=== PATIENT | male | born 1980 | race American Indian/Alaskan Native ===

== ENCOUNTER 2020-05-09 10:41 | Observation (INO) | payer BC ==
--- NOTE | 2020-05-09 10:57 | Event Note ---
ED Screening Note ED Screening Note: severe abd pain since 0500 diffuse n/v x 1 no diarrhea no fever no dysuria or back pain no c/e/d no pmh no surg hx Dr Olivo is pcp This initial assessment/diagnostic orders/clinical plan/treatment(s) is/are subject to change based on patients health status, clinical progression and re- assessment by fellow clinical providers in the ED. Further treatment and workup at subsequent clinical providers discretion. Patient/guardian urged not to elope from the ED as their condition may be serious if not clinically assessed and managed. Initial orders include: ua/labs
[2020-05-09] MEDS ORDERED: ONDANSETRON 4 MG/2 ML INJ IV ONE (12:10)
[2020-05-09] MEDS ORDERED: SODIUM CHLORIDE 0.9% 1000 ML 1,000 ML IV ONE (12:10)
[2020-05-09] MEDS ORDERED: MORPHINE 2 MG/1 ML INJ IV ONE ×2 (12:10→13:47)
--- NOTE | 2020-05-09 12:17 | Emergency Department Report ---
ED Abdominal Pain HPI - General Chief Complaint: Abdominal Pain Stated Complaint: STOMACH PAIN Time Seen by Provider: 05/09/20 10:55 Source: patient Mode of arrival: Ambulatory Limitations: No Limitations - History of Present Illness Initial Comments: 39-year-old male, no past medical history, presents to ED with abdominal pain since 5 AM. Patient states pain has been getting increasingly worse. States pain is located in the mid to right lower quadrant. Patient reports associated vomiting x1. He denies any diarrhea, hematuria, dysuria, or fever. MD Complaint: abdominal pain -: This morning Location: RLQ Radiation: none Migration to: no migration Severity: severe Quality: cramping Consistency: constant Improves With: nothing Worsens With: nothing Associated Symptoms: nausea, vomiting. denies: diarrhea, fever, dysuria, hematuria - Related Data Allergies Allergy/AdvReac Type Severity Reaction Status Date / Time No Known Allergies Allergy Unverified 05/09/20 10:50 ED Review of Systems ROS: Stated complaint: STOMACH PAIN Other details as noted in HPI Comment: All other systems reviewed and negative Constitutional: denies: chills, fever Gastrointestinal: abdominal pain, nausea, vomiting. denies: diarrhea Genitourinary: denies: dysuria, frequency, hematuria ED Past Medical Hx - Past Medical History Previous Medical History?: No - Surgical History Past Surgical History?: No - Social History Smoking Status: Never Smoker Substance Use Type: None ED Physical Exam - General Limitations: No Limitations General appearance: alert, other (In obvious pain) - Head Head exam: Present: atraumatic, normocephalic - Eye Eye exam: Present: normal appearance, EOMI - ENT ENT exam: Present: mucous membranes moist - Neck Neck exam: Present: normal inspection - Respiratory Respiratory exam: Present: normal lung sounds bilaterally. Absent: respiratory distress - Cardiovascular Cardiovascular Exam: Present: regular rate, normal rhythm - GI/Abdominal GI/Abdominal exam: Present: soft, tenderness (Right lower quadrant). Absent: distended - Extremities Exam Extremities exam: Present: normal inspection - Neurological Exam Neurological exam: Present: alert, oriented X3 - Psychiatric Psychiatric exam: Present: normal affect, normal mood - Skin Skin exam: Present: warm, dry, intact, normal color ED Course Vital Signs 05/09/20 05/09/20 05/09/20 10:54 13:05 15:13 Temperature 98.4 F Pulse Rate 81 86 Respiratory 26 H 18 16 Rate Blood Pressure 152/88 Blood Pressure 132/76 [Left] O2 Sat by Pulse 100 100 100 Oximetry - Consultations Consultation #1: 05/09/20 14:[address] Morris. She will come and see the patient. ED Medical Decision Making - Lab Data Result diagrams: 05/09/20 12:19 05/09/20 12:19 - Radiology Data Radiology results: report reviewed, image reviewed - Medical Decision Making 39-year-old male presents to ED with right lower quadrant pain. Patient has elevated WBCs of 15. CT abdomen pelvis shows evidence of acute appendicitis. Spoke with Dr. Morris, general surgeon on-call, will take patient to the OR. Patient given a dose of Zosyn here in the ED. Patient will be admitted by hospitalist, Dr Cleveland, for further management. - Differential Diagnosis Appendicitis, kidney stone Critical care attestation.: If time is entered above; I have spent that time in minutes in the direct care of this critically ill patient, excluding procedure time. ED Disposition Clinical Impression: Acute appendicitis Disposition: OP ADMIT IP TO THIS HOSP Is pt being admited?: Yes Condition: Stable Time of Disposition: 14:41
[2020-05-09 12:44] LABS: Basophils # (Auto) 0.1 K/mm3 (0.0-0.1); Basophils % (Auto) 0.4 % (0.0-1.8); Hematocrit 46.4 % (35.5-45.6); Hemoglobin 15.6 gm/dl (11.8-15.2); Lymphocytes # (Auto) 1.6 K/mm3 (1.2-5.4); Lymphocytes % (Auto) 10.8 % (13.4-35.0); Mean Corpuscular HGB Conc 34 % (32-34); Mean Corpuscular Volume 82 fl (84-94); Monocytes # (Auto) 1.1 K/mm3 (0.0-0.8); Monocytes % (Auto) 6.9 % (0.0-7.3); Platelet Count 309 K/mm3 (140-440); Red Cell Distribution Width 13.2 % (13.2-15.2)
[2020-05-09 12:53] LABS: Bilirubin,Urine NEG (Negative); Blood,Urine SM (Negative); Color,Urine Yellow (Yellow); Mucus,Urine FEW /HPF; Protein,Urine <15 mg/dL mg/dL (Negative); Urobilinogen,Urine < 2.0 mg/dL (<2.0); WBC,Urine < 1.0 /HPF (0.0-6.0)
[2020-05-09 13:03] LABS: Alanine Aminotransferase 40 units/L (7-56); Albumin 5.1 g/dL (3.9-5); BUN/Creatinine Ratio 10; Blood Urea Nitrogen 9 mg/dL (9-20); Calcium 10.1 mg/dL (8.4-10.2); Hemolysis Index 30
--- NOTE | 2020-05-09 14:26 | Cat Scan Report ---
CT abdomen pelvis w con INDICATION / CLINICAL INFORMATION: RLQ pain. TECHNIQUE: All CT scans at this location are performed using CT dose reduction for ALARA by means of automated e xposure control. COMPARISON: None available. FINDINGS: No free fluid is seen in the abdomen. Small bilateral renal cysts are present. The liver, spleen, brian creas, adrenal glands and great vessels are normal. No enlarged mesenteric or retroperitoneal lymph n odes are seen. In the pelvis, no free fluid is seen. The appendix is dilated and fluid-filled consistent with acute appendicitis. No enlarged lymph nodes are identified. The bladder is minimally distended. No signific ant skeletal abnormality is seen. IMPRESSION: Dilated fluid-filled appendix which probably represents acute appendicitis. Signer Name: Gregory Warner MD FACR Signed: 05/09/2020 2:21 PM Workstation Name: [id number]
--- NOTE | 2020-05-09 14:26 | Consultation ---
History of Present Illness Consult date: 05/09/20 Chief complaint: Abdominal pain - History of present illness History of present illness: 39-year-old male with no past medical history who presents to the emergency room with acute onset right lower quadrant abdominal pain, crampy in nature that started at 5 AM today. The patient denies any exacerbating factors. He states the pain is localized and does not radiate. It is moderate in severity. He has had pain like this twice in the past remotely but was never previously diagnosed with appendicitis. He had a normal bowel movement yesterday. No dysuria. No fevers or chills. 1 episode of emesis. States now that his nausea has resolved and he is hungry. He has not eaten since yesterday. Past History Past Medical History: No medical history Past Surgical History: No surgical history Social history: no significant social history Family history: no significant family history Medications and Allergies Allergies Allergy/AdvReac Type Severity Reaction Status Date / Time No Known Allergies Allergy Unverified 05/09/20 10:50 Review of Systems All systems: negative (10 point ROS performed and negative except for that listed in HPI) Exam Vital Signs Temp Pulse Resp BP Pulse Ox 98.4 F 81 26 H 152/88 100 05/09/20 10:54 05/09/20 10:54 05/09/20 10:54 05/09/20 10:54 05/09/20 10:54 Narrative exam: Gen.: Awake, alert, oriented 3. No apparent distress ENT: Trachea midline. No lymphadenopathy. No scleral icterus or conjunctival pallor CV: S1, S2 present Respiratory: No audible wheezes Abdomen: Soft, nondistended, right lower quadrant tenderness to palpation. No rebound, rigidity, guarding Extremities: No clubbing, cyanosis, edema Results - Labs 05/09/20 12:19 05/09/20 12:19 Abnormal lab results 05/09/20 05/09/20 05/09/20 Range/Units 12:19 12:19 12:36 WBC 15.2 H (4.5-11.0) K/mm3 RBC 5.70 H (3.65-5.03) M/mm3 Hgb 15.6 H (11.8-15.2) gm/dl Hct 46.4 H (35.5-45.6) % MCV 82 L (84-94) fl MCH 27 L (28-32) pg Lymph % (Auto) 10.8 L (13.4-35.0) % [place] # (Auto) 1.1 H (0.0-0.8) K/mm3 Seg Neutrophils % 81.9 H (40.0-70.0) % Seg Neutrophils # 12.4 H (1.8-7.7) K/mm3 Glucose 114 H (75-100) mg/dL Albumin 5.1 H (3.9-5) g/dL Urine pH 8.0 H (5.0-7.0) Diabetes panel 05/09/20 Range/Units 12:19 Sodium 138 (137-145) mmol/L Potassium 4.0 (3.6-5.0) mmol/L Chloride 101.3 (98-107) mmol/L Carbon Dioxide 22 (22-30) mmol/L BUN 9 (9-20) mg/dL Creatinine 0.9 (0.8-1.3) mg/dL Glucose 114 H (75-100) mg/dL Calcium 10.1 (8.4-10.2) mg/dL AST 27 (5-40) units/L ALT 40 (7-56) units/L Alkaline Phosphatase 113 (35-129) units/L Total Protein 7.9 (6.3-8.2) g/dL Albumin 5.1 H (3.9-5) g/dL Calcium panel 05/09/20 Range/Units 12:19 Calcium 10.1 (8.4-10.2) mg/dL Albumin 5.1 H (3.9-5) g/dL Pituitary panel 05/09/20 Range/Units 12:19 Sodium 138 (137-145) mmol/L Potassium 4.0 (3.6-5.0) mmol/L Chloride 101.3 (98-107) mmol/L Carbon Dioxide 22 (22-30) mmol/L BUN 9 (9-20) mg/dL Creatinine 0.9 (0.8-1.3) mg/dL Glucose 114 H (75-100) mg/dL Calcium 10.1 (8.4-10.2) mg/dL Adrenal panel 05/09/20 Range/Units 12:19 Sodium 138 (137-145) mmol/L Potassium 4.0 (3.6-5.0) mmol/L Chloride 101.3 (98-107) mmol/L Carbon Dioxide 22 (22-30) mmol/L BUN 9 (9-20) mg/dL Creatinine 0.9 (0.8-1.3) mg/dL Glucose 114 H (75-100) mg/dL Calcium 10.1 (8.4-10.2) mg/dL Total Bilirubin 0.40 (0.1-1.2) mg/dL AST 27 (5-40) units/L ALT 40 (7-56) units/L Alkaline Phosphatase 113 (35-129) units/L Total Protein 7.9 (6.3-8.2) g/dL Albumin 5.1 H (3.9-5) g/dL - Imaging CT scan - abdomen: report reviewed, image reviewed CT scan - pelvis: report reviewed, image reviewed Assessment and Plan 39-year-old male with abdominal pain, acute appendicitis Plan: 1. admit to hospitalist service 2. NPO 3. IVF 4. IV abx 5. DVT ppx 6. prn pain control 7. Recommend appendectomy. I discussed the CT findings with the patient as well as indication for appendectomy. I discussed all risk benefits, alternatives to surgery. Questions were answered and the patient is agreeable to proceed. Consent obtained for laparoscopic appendectomy, possible open. Patient added to the OR schedule for today. Thank you for this consultation. Please call with any questions or concerns. Evaluation and treatment of this patient was during the time of the national and state emergency arising from COVID19 coronavirus pandemic. Treatment and procedures performed meet the current and available best practice and guidelines for patient during the COVID pandemic.
[2020-05-09] MEDS ORDERED: PIPERACIL/TAZOBACTA 4.5/NS 100 4.5 GM/100 ML VIAL IV ONE (14:41)
[2020-05-09] MEDS ORDERED: LIDOCAINE MPF (2%) 20 MG/1 ML VIAL 5 ML ONE (14:44)
[2020-05-09] MEDS ORDERED: propofoL 200 MG/20 ML VIAL IV ONE (14:44)
[2020-05-09] MEDS ORDERED: ROCURONIUM 50 MG/5 ML INJ IV ONE (14:45)
[2020-05-09] MEDS ORDERED: KETOROLAC 30 MG/1 ML INJ ONE (14:45)
[2020-05-09] MEDS ORDERED: dexAMETHasone 20 MG/5 ML VIAL ONE (14:45)
[2020-05-09] MEDS ORDERED: ONDANSETRON 4 MG/2 ML INJ ONE (14:45)
[2020-05-09] MEDS ORDERED: HYDROmorphone 1 MG/1 ML INJ ONE (14:47)
[2020-05-09] MEDS ORDERED: BUPIVACAINE/PF (0.5%) 5 MG/1 ML 30 ML VIAL INFILTRATI ONE ×3 (14:53→15:54)
[2020-05-09] MEDS ORDERED: LIDOCAINE (1%) 10 MG/1 ML VIAL 20 ML MDV ONE (14:53)
[2020-05-09] MEDS ORDERED: ONDANSETRON 4 MG/2 ML INJ IV PRN ×2 (15:49→16:00)
[2020-05-09] MEDS ORDERED: ACETAMINOPHEN 325 MG TAB PO PRN (15:49)
[2020-05-09] MEDS ORDERED: MORPHINE 2 MG/1 ML INJ IV PRN (15:49)
[2020-05-09] MEDS ORDERED: LIDOCAINE (1%) 10 MG/1 ML VIAL 20 ML MDV INFILTRATI ONE ×2 (15:54)
[2020-05-09] MEDS ORDERED: WATER FOR IRRIG STERILE 1,000 ML BOTTLE IR ONE (15:54)
--- NOTE | 2020-05-09 15:57 | History and Physical Report ---
History of Present Illness Date of examination: 05/09/20 Date of admission: 05/09/20 14:52 Chief complaint: Abdominal Pain History of present illness: 39-year-old -Citizen Of [place] male with no significant past medical history presenting to the emergency room today complaining of abdominal pain. Abdominal pain is said to have started early this morning and has been getting increasingly worse during the course of the day. Abdominal pain is located more in the right lower abdomen. He denies any fever or chills, no chest pain or shortness of breath, he has had some nausea and vomiting but no diarrhea. No hematuria or dysuria, no headache or dizziness. Work-up in the emergency room reveals leukocytosis. CT of the abdomen and pelvis was consistent with acute appendicitis. General surgeon Dr. Morris has been consulted by the ER physician. Past History Past Medical History: No medical history Past Surgical History: No surgical history Social history: no significant social history Family history: no significant family history Medications and Allergies Allergies Allergy/AdvReac Type Severity Reaction Status Date / Time No Known Allergies Allergy Unverified 05/09/20 10:50 Active Meds: Active Medications Acetaminophen (Acetaminophen 325 Mg Tab) 650 mg PO Q4H PRN PRN Reason: Pain MILD(1-3)/Fever >100.5/DE [place] Sodium Chloride (Nacl 0.9% 1000 Ml) 1,000 mls @ 125 mls/hr IV DIRECT ISAK Morphine Sulfate (Morphine 2 Mg/1 Ml Inj) 2 mg IV Q4H PRN PRN Reason: Pain, Moderate (4-6) Ondansetron HCl (Ondansetron 4 Mg/2 Ml Inj) 4 mg IV Q8H PRN PRN Reason: Nausea And Vomiting Sodium Chloride (Sodium Chloride 0.9% 10 Ml Flush Syringe) 10 ml IV BID ISAK Sodium Chloride (Sodium Chloride 0.9% 10 Ml Flush Syringe) 10 ml IV PRN PRN PRN Reason: LINE FLUSH Review of Systems Constitutional: no fever, no chills Ears, nose, mouth and throat: no nasal congestion, no sore throat Cardiovascular: no chest pain, no palpitations Respiratory: no cough, no shortness of breath Gastrointestinal: abdominal pain, no nausea, no vomiting, no diarrhea Genitourinary Male: no dysuria, no hematuria, no flank pain Musculoskeletal: no neck pain, no low back pain Integumentary: no rash, no pruritis Neurological: no headaches, no confusion Psychiatric: no anxiety, no depression Exam - Constitutional Vitals: Temp Pulse Resp BP Pulse Ox 98.4 F 86 16 132/76 100 05/09/20 10:54 05/09/20 15:13 05/09/20 15:13 05/09/20 15:13 05/09/20 15:13 General appearance: Present: no acute distress, well-nourished - EENT Eyes: Present: PERRL, EOM intact. Absent: scleral icterus ENT: hearing intact, clear oral mucosa, dentition normal - Neck Neck: Present: supple, normal ROM - Respiratory Respiratory effort: normal Respiratory: bilateral: CTA - Cardiovascular Rhythm: regular Heart Sounds: Present: S1 & S2. Absent: gallop, systolic murmur, diastolic murmur, rub, click - Extremities Extremities: no ischemia, pulses intact, pulses symmetrical, No edema, normal temperature, normal color, Full ROM Peripheral Pulses: within normal limits - Abdominal General gastrointestinal: Present: soft, tender (Right lower quadrant tenderness, No Rebound tenderness.), non-distended, normal bowel sounds. Absent: mass - Integumentary Integumentary: Present: clear, warm, dry. Absent: rash - Musculoskeletal Musculoskeletal: strength equal bilaterally - Psychiatric Psychiatric: appropriate mood/affect, intact judgment & insight, memory intact, cooperative - Neurologic Neurologic: CNII-XII intact, no focal deficits, moves all extremities Results - Labs CBC & Chem 7: 05/09/20 12:19 05/09/20 12:19 Labs: Abnormal lab results 05/09/20 05/09/20 05/09/20 Range/Units 12:19 12:19 12:36 WBC 15.2 H (4.5-11.0) K/mm3 RBC 5.70 H (3.65-5.03) M/mm3 Hgb 15.6 H (11.8-15.2) gm/dl Hct 46.4 H (35.5-45.6) % MCV 82 L (84-94) fl MCH 27 L (28-32) pg Lymph % (Auto) 10.8 L (13.4-35.0) % [place] # (Auto) 1.1 H (0.0-0.8) K/mm3 Seg Neutrophils % 81.9 H (40.0-70.0) % Seg Neutrophils # 12.4 H (1.8-7.7) K/mm3 Glucose 114 H (75-100) mg/dL Albumin 5.1 H (3.9-5) g/dL Urine pH 8.0 H (5.0-7.0) Assessment and Plan - Patient Problems (1) Acute appendicitis Current Visit: Yes Status: Acute Plan to address problem: Patient started on IV fluid ,analgesic medication and empiric IV antibiotics. General surgeon has been consulted for evaluation. (2) DVT prophylaxis Current Visit: Yes Status: Acute Plan to address problem: Patient placed on sequential compression device. (3) Full code status Current Visit: Yes Status: Acute Plan to address problem: Patient is a full code.
[2020-05-09] MEDS ORDERED: HYDROmorphone 1 MG/1 ML INJ IV PRN ×2 (16:00)
[2020-05-09] MEDS ORDERED: SODIUM CHLORIDE 0.9% 1000 ML 1,000 ML IV SCH (16:00)
--- NOTE | 2020-05-09 16:02 | Anesthesia Day of Surgery ---
Anesthesia Day of Surgery - Day of Surgery Patient Examined: Yes (Late entry. Was done at 15:18) Patient H&P Reviewed: Yes Patient is NPO: Yes
--- NOTE | 2020-05-09 16:03 | Anesthesia Consultation ---
Anesthesia Consult and Med Hx Date of service: 05/09/20 - Airway Anesthetic Teeth Evaluation: Good, Bridges ROM Head & Neck: Adequate Mental/Hyoid Distance: Adequate Mallampati Class: Class II Intubation Access Assessment: Good - Pre-Operative Health Status ASA Pre-Surgery Classification: ASA1, Emergency Proposed Anesthetic Plan: General - Pulmonary Hx Smoking: No Hx Respiratory Symptoms: No - Cardiovascular System Hx Hypertension: No - Endocrine Hx Renal Disease: No Hx Non-Insulin Dependent Diabetes: No Hx Thyroid Disease: No - Hematic Hx Sickle Cell Disease: No - Other Systems Hx Obesity: No - Additional Comments Anesthesia Medical History Comments: Late entry-was done at 15:18
[2020-05-09] MEDS ORDERED: GLYCOPYRROLATE 0.4 MG/2 ML INJ ONE (16:28)
[2020-05-09] MEDS ORDERED: NEOSTIGMINE 10MG/10 ML INJ MDV ONE (16:28)
[2020-05-09] MEDS ORDERED: oxyCODONE /ACETAMINOPHEN 5-325MG TAB PO PRN (16:31)
--- NOTE | 2020-05-09 16:31 | Operative Report ---
Operative Report Operative Report: Date of operation: 05/09/20 Preoperative diagnosis: acute appendicitis Postoperative diagnosis: acute gangrenous appendicitis Procedure performed: Laparoscopic appendectomy Surgeon: Johan Morris DO Anesthesia: GETA, local Findings: Dilated, thickened,inflammed appendix. No free fluid or perforation EBL:<10cc Specimen: appendix Disposition/Condition: stable to PACU HPI and indication: 39 yo M presented to ER with RLQ pain 1 day, n/v. He was found to have an elevated WBC and acute appendicitis on CT scan. It was recommended that he undergo an appendectomy. All risk, benefits, alternatives to surgery discussed with patient and questions answered. Consent was obtained. Procedure in detail: Patient was identified in the preop area and taken back to the OR and placed on the OR table in supine position. After anesthesia was induced a alexander catheter was steriley placed by the circulating nurse. The left arm was tucked and all bony prominences padded appropriately. A time out was performed. Local anesthetic was infilitrated into all skin incision sites. A supraumbilical incision was made and veress needle inserted. The positioning of the veress needle was confirmed using the saline drop test. The abdomen was then insufflated to 15mmHg without incident. Once the abdomen was insufflated, the veress needle was withdrawn and a 5mm Optiview trocar was placed through the incision. The abdomen was inspected and no underlying injury to the abdominal structures was identified. The patient was placed in Trendelenburg and tilted to the left. A 5mm suprapubic trocar and a 12 mm LLQ trocar were placed under direct visualization. The appendix was visualized and noted to be dilated and inflammed. Adhesions from the appendix base to the lateral abdominal wall were taken down using harmonic scalpel. The mesentery of the appendix was ligated using the harmonic scalpel. The dissection was carried down to the base of the appendix. The base of the appendix was transected using an ethicon flex stapler 45mm white load. The appendix was placed into an endocatch bag and removed via the 12 mm port. This was passed off the table as specimen. The staple line and mesentery were then inspected and no bleeding visualized. The ports were removed under direct visualization and the abdomen desufflated. The 12mm port fascia was closed with interrupted 0 vicryl stitch using the Young Nava device. All skin incisions were closed using 4-0 monocryl subcuticular stitches and skin glue. Local anesthetic was once again infiltrated into all incision sites At the end of the case, all sponge, instrument, sharp counts were correct x2. The patient was awoken from anesthesia, alexander catheter removed, and he was taken to PACU in stable condition.
--- NOTE | 2020-05-09 19:08 | Post Anesthesia Evaluation ---
- Post Anesthesia Evaluation Patient Participated: Yes Airway Patent: Yes Stable Respiratory Function: Yes Nausea/Vomiting: No Temp > 96.8F: Yes Pain Manageable: Yes Adequeate Hydration: Yes Anesthesia Complications: No Block Receding Appropriately: Not Applicable Patient on Ventilator: No
[2020-05-09] MEDS: PIPERACIL/TAZOBACTA 4.5/NS 100 4.5 GM/100 ML VIAL IV SCH (22:21)
[2020-05-10] MEDS: PIPERACIL/TAZOBACTA 4.5/NS 100 4.5 GM/100 ML VIAL IV SCH (06:05)
[2020-05-10 06:32] LABS: Basophils % (Auto) 0.2 % (0.0-1.8); Hematocrit 42.9 % (35.5-45.6); Hemoglobin 14.1 gm/dl (11.8-15.2); Lymphocytes # (Auto) 1.4 K/mm3 (1.2-5.4); Lymphocytes % (Auto) 8.5 % (13.4-35.0); Mean Corpuscular HGB Conc 33 % (32-34); Mean Corpuscular Volume 83 fl (84-94); Monocytes # (Auto) 0.8 K/mm3 (0.0-0.8); Monocytes % (Auto) 5.2 % (0.0-7.3); Platelet Count 283 K/mm3 (140-440); Red Cell Distribution Width 13.1 % (13.2-15.2)
[2020-05-10 06:40] LABS: BUN/Creatinine Ratio 11; Blood Urea Nitrogen 11 mg/dL (9-20); Calcium 8.7 mg/dL (8.4-10.2); Hemolysis Index 10
--- NOTE | 2020-05-10 09:47 | Progress Note ---
Assessment and Plan 39-year-old male status post laparoscopic appendectomy, postop day 1 Plan: 1. reg diet 2. dc IVF 3. dc abx 4. prn PO pain control 5. OOB/ambulate 6. Cleared for dc from surgery standpoint. Pt given verbal dc instruction and written instruction. He was advised to follow up in office in 2weeks for post of visit. Discussed with Dr. Ribeiro Thank you for this consultation. Please call with any questions or concerns. Subjective Date of service: 05/10/20 Narrative: The patient was seen and examined. He complains of some soreness on the left abdomen near his incision. Otherwise he states he is doing well. No fevers or chills. No nausea or vomiting. He is tolerating a regular diet. Pain is well controlled and he rates it a 1-2 out of 10. Objective Vital Signs - 12hr 05/10/20 05/10/20 05/10/20 01:39 04:09 07:32 Temperature 97.7 F 97.6 F 98.3 F Pulse Rate 57 L 69 55 L Respiratory 18 18 18 Rate Blood Pressure 115/68 119/58 116/59 O2 Sat by Pulse 96 96 100 Oximetry - General physical appearance Narrative Exam: Gen.: Awake, alert, oriented 3. No apparent distress ENT: Trachea midline. No lymphadenopathy. No scleral icterus or conjunctival pallor CV: S1, S2 present Respiratory: No audible wheezes Abdomen: Soft, nondistended, nontender. Incisions clean, dry, intact. No rebound, rigidity, guarding Extremities: No clubbing, cyanosis, edema - Labs 05/10/20 05:17 05/10/20 05:17 Diabetes panel 05/09/20 05/10/20 Range/Units 12:19 05:17 Sodium 138 137 (137-145) mmol/L Potassium 4.0 4.0 (3.6-5.0) mmol/L Chloride 101.3 103.8 (98-107) mmol/L Carbon Dioxide 22 25 (22-30) mmol/L BUN 9 11 (9-20) mg/dL Creatinine 0.9 1.0 (0.8-1.3) mg/dL Glucose 114 H 111 H (75-100) mg/dL Calcium 10.1 8.7 (8.4-10.2) mg/dL AST 27 (5-40) units/L ALT 40 (7-56) units/L Alkaline Phosphatase 113 (35-129) units/L Total Protein 7.9 (6.3-8.2) g/dL Albumin 5.1 H (3.9-5) g/dL Calcium panel 05/09/20 05/10/20 Range/Units 12:19 05:17 Calcium 10.1 8.7 (8.4-10.2) mg/dL Albumin 5.1 H (3.9-5) g/dL Pituitary panel 05/09/20 05/10/20 Range/Units 12:19 05:17 Sodium 138 137 (137-145) mmol/L Potassium 4.0 4.0 (3.6-5.0) mmol/L Chloride 101.3 103.8 (98-107) mmol/L Carbon Dioxide 22 25 (22-30) mmol/L BUN 9 11 (9-20) mg/dL Creatinine 0.9 1.0 (0.8-1.3) mg/dL Glucose 114 H 111 H (75-100) mg/dL Calcium 10.1 8.7 (8.4-10.2) mg/dL Adrenal panel 05/09/20 05/10/20 Range/Units 12:19 05:17 Sodium 138 137 (137-145) mmol/L Potassium 4.0 4.0 (3.6-5.0) mmol/L Chloride 101.3 103.8 (98-107) mmol/L Carbon Dioxide 22 25 (22-30) mmol/L BUN 9 11 (9-20) mg/dL Creatinine 0.9 1.0 (0.8-1.3) mg/dL Glucose 114 H 111 H (75-100) mg/dL Calcium 10.1 8.7 (8.4-10.2) mg/dL Total Bilirubin 0.40 (0.1-1.2) mg/dL AST 27 (5-40) units/L ALT 40 (7-56) units/L Alkaline Phosphatase 113 (35-129) units/L Total Protein 7.9 (6.3-8.2) g/dL Albumin 5.1 H (3.9-5) g/dL
[2020-05-10 13:17] VITALS: BP 108/55
--- NOTE | 2020-05-10 14:55 | Discharge Summary ---
Providers - Providers Date of Admission: 05/09/20 14:52 Date of discharge: 05/10/20 Attending physician: MARYCRUZ OSMAN 05/09/20 14:40 Consult to Physician [CONS] Stat Comment: Consulting Provider: JAZLYN DEE Physician Instructions: Reason For Exam: appendicitis Primary care physician: CLEVELAND SPARKS NP Hospitalization Condition: Stable Hospital course: 39-year-old presented with right lower quadrant pain. Patient found on CT scan to have acute appendicitis. Patient was hydrated and had surgical intervention that was unremarkable. Patient now much better pain. Able to move around use the bathroom tolerate p.o. No significant pain during movement. Patient stable for discharge via myself and surgery. Follow-up with surgery in 2 weeks. Disposition: TO HOME OR SELFCARE Core Measure Documentation - Palliative Care Palliative Care/ Comfort Measures: Not Applicable - Core Measures Any of the following diagnoses?: none Exam - Constitutional Vitals: Temp Pulse Resp BP Pulse Ox 97.9 F 58 L 18 108/55 95 05/10/20 12:53 05/10/20 12:53 05/10/20 12:53 05/10/20 12:53 05/10/20 12:53 General appearance: Present: no acute distress, well-nourished - EENT Eyes: Present: PERRL ENT: hearing intact, clear oral mucosa - Neck Neck: Present: supple, normal ROM - Respiratory Respiratory effort: normal Respiratory: bilateral: CTA - Cardiovascular Heart Sounds: Present: S1 & S2. Absent: rub, click - Extremities Extremities: pulses symmetrical, No edema Peripheral Pulses: within normal limits - Abdominal General gastrointestinal: Present: soft, non-tender, non-distended, normal bowel sounds, other (Bandage with tenderness only around surgical site.) Male genitourinary: Present: normal - Integumentary Integumentary: Present: clear, warm, dry - Musculoskeletal Musculoskeletal: gait normal, strength equal bilaterally - Psychiatric Psychiatric: appropriate mood/affect, intact judgment & insight - Neurologic Neurologic: CNII-XII intact, moves all extremities Plan Activity: up only with assistance Weight Bearing Status: Full Weight Bearing Diet: regular Follow up with: CLEVELAND SPARKS NP [Primary Care Provider] - 3-5 Days JAZLYN DEE DO [Staff Physician] - 14 Days Prescriptions: oxyCODONE /ACETAMINOPHEN [Percocet 5/325 mg] 2 tab PO Q6H PRN #30 tablet PRN Reason: Pain, Moderate (4-6)
== END 2020-05-10 16:30 | disposition home or self-care (01) ==
LOC: ED 10:41 → 3A 14:52 → 3B 15:51
PROVIDERS: ADMIT Internal Medicine Geriatric Medicine; ATTEND Internal Medicine
DX: K35.80 Unspecified acute appendicitis (principal)
CPT/HCPCS: 36415; 44970; 74177; 80048; 80053; 81001; 83690; 85025; 88304; 96361; 96365; 96366; 96375; 96376; 99284; G0378; J1100; J1885; J2270; J2405; J2543; J2704; J2710; J7030; Q9967; J1170